=== PATIENT | female | born 1985 ===

== ENCOUNTER 2017-07-17 18:31 | Emergency (ER) | payer SELFPAY ==
[2017-07-17 19:12] VITALS: BP 115/75; TEMP 99
--- NOTE | 2017-07-17 19:45 | C.PDOC ---
History Of Present Illness 31 yo female come in for evaluation of sore throat, Right earache gradually developed for past few days associated with Right neck lymph node swelling and pain since today, (+) low grade fever. Otherwise, pt denies high fever, chills, drooling, ear discharges, trismus, headache, dizziness, neck pain, CP, SOB, cough, wheezing, abd. pain, V/D, back pain, UTI sx, rash. Ambulate to Ed for evaluation, not in any apparent distress. Time Seen by Provider: 07/17/17 19:33 Chief Complaint (Nursing): ENT Problem History Per: Patient Onset/Duration Of Symptoms: Gradual Past Medical History Reviewed: Historical Data, Nursing Documentation, Vital Signs Vital Signs: Last Vital Signs Temp 99 F 07/17/17 19:10 Pulse 104 H 07/17/17 19:10 Resp 20 07/17/17 19:10 BP 115/75 07/17/17 19:10 Pulse Ox 99 07/17/17 19:45 - Medical History PMH: Hypothyroidism Surgical History: No Surg Hx Family History: States: No Known Family Hx - Social History Hx Alcohol Use: No Hx Substance Use: No Review Of Systems Except As Marked, All Systems Reviewed And Found Negative. Constitutional: Positive for: Fever. Negative for: Malaise ENT: Positive for: Ear Pain, Nose Congestion, Throat Pain, Throat Swelling. Negative for: Ear Discharge, Nose Discharge Respiratory: Negative for: Cough, Shortness of Breath, Wheezing Gastrointestinal: Negative for: Nausea, Vomiting, Abdominal Pain, Diarrhea Genitourinary: Negative for: Dysuria, Frequency, Incontinence Musculoskeletal: Negative for: Neck Pain, Back Pain Skin: Negative for: Rash Neurological: Negative for: Weakness, Numbness, Altered Mental Status, Headache , Dizziness Physical Exam - Physical Exam Appears: Well, No Acute Distress Skin: Normal Color, Warm, Dry, No Rash Eye(s): bilateral: PERRL Ear(s): Left: Normal, Right: TM Erythema Nose: No Flaring, No Discharge Oral Mucosa: Moist, No Drooling Tongue: Normal Appearing Lips: Normal Appearing Throat: Erythema (mild B/L), No Exudate, No Drooling Neck: Trachea Midline, Supple Lymphatic: Adenopathy (Right submandibular) Cardiovascular: Rhythm Regular, No JVD Respiratory: No Decreased Breath Sounds, No Accessory Muscle Use, No Stridor, No Wheezing Gastrointestinal/Abdominal: Soft, No Tenderness, No Distention, No Guarding, No Rebound Back: No CVA Tenderness Extremity: Normal ROM, No Deformity, No Swelling Neurological/Psych: Oriented x3, Normal Speech, Normal Motor, Normal Sensation, Normal Reflexes ED Course And Treatment O2 Sat by Pulse Oximetry: 99 Pulse Ox Interpretation: Normal Progress Note: On re-evaluation, pt is afebrile, hemodynamicaly stable. Non- toxic. Tolerate Po well in ED. PusleOx 99% RA. ENT: exam c/w Right potitis media,. Neck: Supple, (+) Right submandibular lymphodenopathy, (-) meningeal sign. Lungs: CTA B/L, BS equla B/L. CVS: (+)S1S2, reg. Abd: Benign. Neuorlogicaly intact. Pt advised. ref. to F/u with ENT in 2-3 days for re- eval. return to ED if any worsening or new changes. Disposition Counseled Patient/Family Regarding: Diagnosis, Need For Followup, Rx Given - Disposition Referrals: Jean Claude Hills MD [Staff Provider] - Disposition Time: 19:45 Condition: STABLE Additional Instructions: ENCOURAGE FLUIDS TAKE MEDICATION PRESCRIBED FOLLOW UP WITH PMD IN 2-3 DAYS FOR RE-EVALUATION. RETURN TO ED IF ANY WORSENING OR NEW CHANGES. Prescriptions: Azithromycin [Zithromax] 250 mg PO DAILY #4 tab Ibuprofen [Motrin Tab] 600 mg PO Q6 #14 tab Prednisone [Deltasone] 20 mg PO DAILY #3 tablet Instructions: Otitis Media (ED) Forms: [employer] (Slovenian) Print Language: DANISH - Clinical Impression Clinical Impression: Otitis media
[2017-07-17 20:35] VITALS: PULSE 90; RESP 18; O2SAT 100
== END 2017-07-17 20:31 | disposition home or self-care (01) ==
LOC: C.ER 18:31
DX: H66.91 Otitis media, unspecified, right ear (principal)